=== PATIENT | female | born 1930 | race Caucasian/White ===

== ENCOUNTER 2017-08-03 14:15 | Outpatient (CLI) | payer MEDICARE ==
--- NOTE | 2017-08-03 18:56 | SJPRAD ---
THREE VIEWS RIGHT ANKLE: History: 86-year-old with right ankle pain. FINDINGS: AP, lateral, and oblique views demonstrate edema in the soft tissues of the lateral aspect of the ri ght ankle. No definite evidence of acute fractures or bony lesions seen. IMPRESSION: Edema in the lateral aspect of the right ankle. No acute evidence of bony abnormalities seen. POS: [facility]
== END 2017-08-03 14:16 | disposition home or self-care (01) ==
LOC: MWLC RAD 14:15
PROVIDERS: ATTEND Internal Medicine Geriatric Medicine
DX: M25.571 Pain in right ankle and joints of right foot (principal); R60.0 Localized edema

== ENCOUNTER 2017-08-14 19:35 | Emergency (ER) | payer MEDICARE ==
[2017-08-14 20:10] LABS: Bilirubin Negative (Negative); Blood, Urine Negative (Negative); Glucose, Urine (Dipstick) Negative (Negative); Ketone, Urine Negative (Negative); Nitrite Negative (Negative); Protein, Urine (Dipstick) Negative (Neg-Trace); Urobilinogen 0.2 mg/dL (0.2-1.0)
[2017-08-14 20:14] LABS: Bacteria/HPF None Seen HPF (None Seen); Hyaline Casts/LPF 0-3 HYALINE CAST LPF (0-3 Hyaline); RBC/HPF 0-3 HPF (0-3); Squamous Epithelial 0-3 HPF (0-3)
[2017-08-14 20:48] LABS: #Eosinphils 0.2 thou/uL (0.0-0.7); #Monocytes 0.5 thou/uL (0.11-0.59); #Neutrophils 4.2 thou/uL (1.40-6.50); %Basophils 0.5 % (0.0-1.0); %Eosinophils 3.6 % (0.0-10.0); %Lymphocytes 17.6 % (21.0-51.0); %Monocytes 7.9 % (0.0-10.0); Hematocrit 38.7 % (36.0-47.0); Mean Platelet Volume 5.9 fL (7.4-10.4); White Blood Cell (WBC) Count 5.9 thou/uL (4.8-10.8)
[2017-08-14 21:10] LABS: ALT (SGPT) 21 U/L (8-55); AST (SGOT) 18 U/L (5-34); Alkaline Phosphatase 86 U/L (40-150); Anion Gap 16 mmol/L (10-20); BUN (Urea Nitrogen) 17 mg/dL (9.8-20.1); Bilirubin, Total 0.6 mg/dL (0.2-1.2); Calc. Creatinine Clearance 0 mL/min (70-130); Carbon Dioxide 28 mmol/L (23-31); Chloride 99 mmol/L (98-107); Estimated GFR-MDRD 44; Globulin 3.2 g/dL (2.4-3.5)
[2017-08-14 21:44] LABS: Lactic Acid - Sepsis 1.5 mmol/L (0.5-2.2)
--- NOTE | 2017-08-14 22:06 | CT ---
CT HEAD WITHOUT CONTRAST 08/14/17 COMPARISON: None. HISTORY: Altered mental status, confusion, weakness. TECHNIQUE: Serial axial CT imaging at 5 mm intervals from vertex through skull base without contrast. FINDINGS: The imaged paranasal sinuses/mastoid air cells are well aerated. No displaced calvarial fracture. Th ere is atherosclerotic calcification of the cavernous carotid arteries. There is diffuse cerebral vo lume loss with associated prominence of the CSF containing spaces. No intracranial hemorrhage, midli ne shift, mass effect or ventricular enlargement. IMPRESSION: No acute findings. POS: [facility]
--- NOTE | 2017-08-14 22:59 | RAD ---
FRONTAL RADIOGRAPH CHEST 08/14/17 COMPARISON: None. HISTORY: Confusion, altered mental status and UTI. FINDINGS: There is interstitial prominence bilaterally. There is atherosclerotic calcification of the aortic a rch. There is no pneumothorax, pleural fluid, focal consolidation or alveolar edema. IMPRESSION: No focal consolidation or alveolar edema. POS: [facility]
== END 2017-08-14 23:36 | disposition home or self-care (01) ==
LOC: ERS 19:35
DX: R41.0 Disorientation, unspecified (principal); N28.9 Disorder of kidney and ureter, unspecified; E03.9 Hypothyroidism, unspecified; F41.9 Anxiety disorder, unspecified
CPT/HCPCS: 36415; 70450; 71010; 80053; 81003; 81015; 83605; 85025; 93005